=== PATIENT | female | born 1970 | race Caucasian/White ===

== ENCOUNTER 2018-11-01 22:36 | Emergency (ER) | payer BC ==
[~2018-11-01] VITALS: Ht 162.6 cm; Wt 70.3 kg
--- NOTE | 2018-11-01 22:50 | NUR ---
Pt ambulated to ER with c/o urinary urgency, retention. AAOX4. Denies N/V/D. Denies back pain. Denies CP/SOB. Pt also c/o bump on right middle finger, states she was on antibiotics for 1 week, however not effective. No acute distress noted.
--- NOTE | 2018-11-01 22:57 | NUR ---
Dr. Nelson DELEON MD at bedside to evaluate pt.
[2018-11-01 23:06] LABS: *BILIRUBIN,URIN 1+ (NEGATIVE); *BLOOD, URINE 1+ (NEGATIVE); *COLOR,URINE YELLOW (YELLOW); *KETONES,URINE TRACE (NEGATIVE); *UROBILINOGEN,URINE 0.2 E.U./dl (NORMAL); LEUKOCYTE ESTERASE ,URINE NEGATIVE (NEGATIVE); NITRITE, URINE NEGATIVE (NEGATIVE); PH,URINE 5.5 (5.0-8.0); UGLUCOSE NEGATIVE (NEGATIVE)
[2018-11-01] MEDS ORDERED: diphenhydrAMINE 25 MG CAP PO ONE ×2 (23:11→23:15)
[2018-11-01] MEDS ORDERED: ACYCLOVIR 200 MG CAPSULE ONE (23:11)
[2018-11-01] MEDS ORDERED: LIDOCAINE HCL 1% 20 ML VIAL ONE (23:11)
[2018-11-01] MEDS ORDERED: predniSONE 20 MG TABLET ONE (23:12)
[2018-11-01] MEDS ORDERED: CEFTRIAXONE 1 G VIAL ONE (23:12)
[2018-11-01] MEDS ORDERED: ACYCLOVIR 400 MG TABLET PO ONE (23:15)
[2018-11-01] MEDS ORDERED: predniSONE 20 MG TABLET PO ONE (23:15)
[2018-11-01] MEDS ORDERED: CEFTRIAXONE 1 G VIAL IM ONE (23:15)
[2018-11-01 23:16] LABS: *CLARITY,URINE HAZY (CLEAR)
[2018-11-01 23:18] LABS: BACTERIA,URINE FEW /HPF (NONE SEEN); MUCUS,URINE FEW /LPF (0-FEW); SQUAMOUS EPITHELIAL CELL,UR MODERATE /HPF (NONE SEEN); WBC,URINE 0-3 /HPF (0-3)
--- NOTE | 2018-11-01 23:38 | NUR ---
Bladder scan performed, MD notified.
--- NOTE | 2018-11-01 23:39 | NUR ---
Bladder scan performed, showing empty.
--- NOTE | 2018-11-01 23:56 | NUR ---
Patient discharged to home in stable conditon. Written and verbal after care instructions given. Patient verbalizes understanding of instructions. Pt ambulated out of ER in steady gait. All belongings w pt. VSS. NAD noted.
[2018-11-02 00:01] VITALS: BP 111/69
== END 2018-11-02 00:02 | disposition home or self-care (01) ==
LOC: ER 22:37
DX: N39.0 Urinary tract infection, site not specified (principal); L03.011 Cellulitis of right finger; R31.29 Other microscopic hematuria; L29.9 Pruritus, unspecified; T37.0X5A Adverse effect of sulfonamides, initial encounter; Y92.89 Other specified places as the place of occurrence of the external cause
CPT/HCPCS: 81001; 96372; 99284; J0696; J3490; J7512; Q0163; A4663

== ENCOUNTER 2018-11-03 03:09 | Emergency (ER) | payer BC ==
[~2018-11-03] VITALS: Ht 162.6 cm; Wt 705.3 kg
--- NOTE | 2018-11-03 03:30 | NUR ---
Pt. ambulated into ED w/ generalized rash, no SOB/F/C/N/V, at bedside for MSE
[2018-11-03] MEDS ORDERED: FAMOTIDINE 20 MG TABLET PO ONE (03:45)
[2018-11-03] MEDS ORDERED: methylPREDNISolone SOD SUCC 125 MG/2 ML VIAL IM ONE (03:45)
[2018-11-03] MEDS ORDERED: diphenhydrAMINE 50 MG/1 ML VIAL IM ONE (03:45)
[2018-11-03] MEDS ORDERED: methylPREDNISolone SOD SUCC 125 MG/2 ML VIAL ONE (03:52)
[2018-11-03] MEDS ORDERED: diphenhydrAMINE 50 MG/1 ML VIAL ONE (03:52)
[2018-11-03] MEDS ORDERED: FAMOTIDINE 20 MG TABLET ONE (03:52)
--- NOTE | 2018-11-03 04:14 | NUR ---
Patient discharged to home in stable conditon. Written and verbal after care instructions given. Patient verbalizes understanding of instructions. Pt. d/c w/ prescription per MD order, d/c papers signed, all belongings w/ pt., ID band removed, NAD, instructed not to drive, here for pickup,
== END 2018-11-03 04:16 | disposition home or self-care (01) ==
LOC: ER 03:09
DX: R21 Rash and other nonspecific skin eruption (principal); L29.9 Pruritus, unspecified; L03.011 Cellulitis of right finger; L27.0 Generalized skin eruption due to drugs and medicaments taken internally; T37.5X5A Adverse effect of antiviral drugs, initial encounter; T36.1X5A Adverse effect of cephalosporins and other beta-lactam antibiotics, initial encounter; Z88.2 Allergy status to sulfonamides; Z88.0 Allergy status to penicillin; Y92.89 Other specified places as the place of occurrence of the external cause
CPT/HCPCS: 96372 ×2; 99283; J1200; J2930; A4663

== ENCOUNTER 2025-06-11 17:21 | Emergency (ER) | payer BC ==
[~2025-06-11] VITALS: Ht 162.6 cm; Wt 81.6 kg
[2025-06-11] MEDS ORDERED: ASPIRIN 81 MG TAB.CHEW ONE (17:53)
[2025-06-11] MEDS: ASPIRIN 81 MG TAB.CHEW PO ONE (17:56)
[2025-06-11 18:36] LABS: PLATELET COUNT (AUTO) 232 K/uL (179-408); RED BLOOD CELL COUNT(AUTO) 4.62 MIL/uL (3.63-4.92); RED CELL DISTRIBUTION WIDTH 14.6 % (12.3-17.7); WHITE BLOOD COUNT (AUTO) 7.5 K/uL (3.8-11.8)
[2025-06-11] MEDS ORDERED: IOHEXOL 350 100 ML INFUS..BTL ONE (18:37)
[2025-06-11] MEDS ORDERED: IV NORMAL SALINE 250 ML IV ONE (18:37)
[2025-06-11] MEDS ORDERED: SWABABLE VALVE TRANSFER SET EA MC ONE (18:37)
[2025-06-11 18:45] LABS: CREATININE 0.7 mg/dL (0.6-1.3); SODIUM SERUM 142 mmol/L (136-145); UREA NITROGEN, BLOOD 12 mg/dL (7-18)
[2025-06-11 23:10] VITALS: BP 128/98
[2025-06-11] MEDS ORDERED: ASPIRIN 325 MG TABLET ONE (23:14)
[2025-06-11] MEDS: ASPIRIN 325 MG TABLET PO ONE (23:18)
[2025-06-11 23:55] VITALS: BP 128/98; O2SAT 99
== END 2025-06-11 23:40 | disposition left against medical advice (07) ==
LOC: ER 17:21
DX: G45.3 Amaurosis fugax (principal); E78.00 Pure hypercholesterolemia, unspecified; Z87.19 Personal history of other diseases of the digestive system; Z88.0 Allergy status to penicillin; Z88.1 Allergy status to other antibiotic agents; Z88.2 Allergy status to sulfonamides; Z88.7 Allergy status to serum and vaccine
CPT/HCPCS: 99285; 70496; 80048; 85025; 85379; 85651; 85730; 84484; 36415; 70498; Q9967; A4606; A4663